=== PATIENT | female | born 1955 | race Caucasian/White ===

== ENCOUNTER → 2020-07-04 | Outpatient (CLI) | payer OTHER ==
[~2020-07-04] MED LIST: COMPAZINE5 MG PO; EFFEXOR XR37.5 MG PO; EFFEXOR37.5 MG PO; FISH OIL + VIT1 EACH PO; FISH OIL 1,0001 EAC5 PO; MAG DELAY64 MG PO; OCUVITE TABLET1 EAC1 PO; OMEPRAZOLE PO; PEPTO-BISMOL262 M1 PO; THERA-M CAPLET1 EACH PO; ULTRAM 50MG TAB50 MG PO; VALTREX 500 MG500 M1 PO
== END ==
LOC: CAT 08:22
PROVIDERS: ATTEND Family Medicine
DX: Z13.6 Encounter for screening for cardiovascular disorders (principal); I25.10 Atherosclerotic heart disease of native coronary artery without angina pectoris; E78.00 Pure hypercholesterolemia, unspecified